=== PATIENT | female | born 1965 | race Caucasian/White ===

== ENCOUNTER → 2016-11-02 | Outpatient (CLI) | payer OTHER ==
--- NOTE | 2016-11-02 17:24 | MA ---
Digital Screening Mammogram With iCAD Indication: Routine screening. Breast density: Type 2 - 25 to 50%. Technique: Four views of each breast were obtained including CC and oblique lateral Isabel (implant d isplaced) and non-Isabel (implant not displaced) views. CAD was utilized using the iCAD product. Comparison: September 2015, September 2014, September 2013, August 2012, and July 2011. Findings: No malignant-type calcifications, mass, or architectural distortion. Bilateral breast impl ants are unchanged in configuration. Impression: Negative mammograms. BI-RADS 1: Negative Recommendation: Routine screening in one year. [facility] will send a result letter to the patient. Negative mammography should not preclude additional workup of a clinically suspicious finding. The patient's information is entered into a reminder system with a target due date for her next mammo gram.
== END ==
LOC: BRMIMAGING 14:48
DX: Z12.31 Encounter for screening mammogram for malignant neoplasm of breast (principal)
CPT/HCPCS: G0202

== ENCOUNTER → 2017-11-03 | Outpatient (CLI) | payer OTHER | LOC: BRMIMAGING 08:02 | PROVIDERS: ATTEND Physician Assistant Medical | DX: Z12.31 Encounter for screening mammogram for malignant neoplasm of breast (principal) ==

== ENCOUNTER → 2018-11-04 | Outpatient (CLI) | payer OTHER | LOC: BRMIMAGING 10:46 | PROVIDERS: ATTEND Physician Assistant Medical | DX: Z12.31 Encounter for screening mammogram for malignant neoplasm of breast (principal); Z98.82 Breast implant status ==